=== PATIENT | female | born 1990 | race African-American/Black ===

== ENCOUNTER → 2020-09-16 | Outpatient (CLI) | payer BC, MEDICAID ==
[2020-09-17 06:37] LABS: HEPATITS B SURFACE ANTIGEN Negative (Negative)
[2020-09-17 07:11] LABS: HEPATITIS C VIRUS ANTIBODY <0.1 s/co ratio (0.0-0.9)
== END ==
LOC: OD 12:14
PROVIDERS: ATTEND Family Medicine
DX: A64 Unspecified sexually transmitted disease (principal)
CPT/HCPCS: 36415; 80074; 86592; 86701